=== PATIENT | male | born 1965 | race African-American/Black ===

== ENCOUNTER 2021-01-10 18:11 | Emergency (ER) | payer BC ==
[2021-01-10 18:37] VITALS: BMI 43.2
[2021-01-10] MEDS ORDERED: BAMLANIVIMAB 700 MG, ETESEVIMAB 1,400 MG in SODIUM CHLORIDE 250 ML IVPB ONE (18:39)
[2021-01-10 20:34] VITALS: PULSE 89
[2021-01-10 21:08] LABS: BASO % 0.5 % (0-2.0); EOS % 0.1 % (0-4.5); HEMATOCRIT 39.6 % (35.4-49); HEMOGLOBIN 13.2 GM/dL (11.7-16.9); LYMPH % 32.3 % (8-40); MCH 26.3 pg (25.7-33.7); MCHC 33.4 g/dl (32.0-35.9); MEAN CELL VOLUME 78.7 fl (80-96); MONO % 6.9 % (3.8-10.2); NEUT % 60.2 % (42.8-82.8); PLATELET COUNT 130 K/MM3 (134-434); RBC 5.03 M/mm3 (4.00-5.60); RDW 15.7 % (11.9-15.9); WHITE BLOOD COUNT 3.8 K/mm3 (4.0-10.0)
[2021-01-10 21:29] LABS: BLOOD UREA NITROGEN 16.5 mg/dL (7-18); CALCIUM 8.6 mg/dL (8.5-10.1)
[2021-01-10 21:33] LABS: CREATININE 1.5 mg/dL (0.55-1.3)
[2021-01-10 22:22] VITALS: BP 130/89; TEMP 98.9
== END 2021-01-10 22:24 | disposition home or self-care (01) ==
LOC: JER 18:11
DX: U07.1 COVID-19 (principal)
CPT/HCPCS: 36415; 80048; 85025; 99284-25; M0239; Q0239; Q0245